=== PATIENT | female | born 1980 | race African-American/Black ===

== ENCOUNTER 2018-06-08 14:09 | Outpatient (CLI) | payer OTHER ==
[~2018-06-08 14:09] MED LIST: Iopamidol 300 61% 50 ML VIAL FS ONE
--- NOTE | 2018-06-08 19:17 | RAD ---
HYSTEROSALPINGOGRAM: 06/08/18 HISTORY: 37-year-old female with infertility. TECHNIQUE/FINDINGS: Signed informed consent obtained. Procedure was performed following standard sterile technique. Lubri cated speculum was placed into the vaginal canal. Cotton tipped applicators used to swab the external cervical os with Betadine x 2. Sterile HSG catheter advanced through the external cervical os, ballo on inflated, and contrast injected. Initially, the catheter tip was in the cervical canal. The balloo n was deflated, and the catheter was advanced into the endometrial cavity of the uterus. Balloon was reinflated, and additional contrast was injected while the catheter balloon was pulled back to obstru ct the internal cervical os. Despite strong pressure with the syringe, no contrast free spillage is v isualized within the pelvic cavity. The proximal segment nondilated right fallopian tube is opacified with contrast, but distal portions are not visualized. The left fallopian tube does not opacify with contrast. The endometrial cavity is normal in shape with no filling defect defects or irregularity. IMPRESSION: Bilateral occlusion of fallopian tubes. POS: [facility]
== END 2018-06-08 14:10 | disposition home or self-care (01) ==
LOC: RAD 14:09
PROVIDERS: ATTEND Obstetrics & Gynecology Reproductive Endocrinology
DX: N97.1 Female infertility of tubal origin (principal)
CPT/HCPCS: 58340; 74740

== ENCOUNTER 2023-06-16 13:41 | Outpatient (CLI) | payer OTHER | END 2023-06-16 13:42 | disposition home or self-care (01) | LOC: BICMAMMO 13:41 | PROVIDERS: ATTEND Obstetrics & Gynecology | DX: R92.8 Other abnormal and inconclusive findings on diagnostic imaging of breast (principal); N63.14 Unspecified lump in the right breast, lower inner quadrant | CPT/HCPCS: G0279 ==

== ENCOUNTER 2025-05-09 11:00 | Outpatient (CLI) | payer OTHER | END 2025-05-09 11:01 | disposition home or self-care (01) | LOC: PET 11:00 | PROVIDERS: ATTEND Radiology Radiation Oncology | DX: C50.812 Malignant neoplasm of overlapping sites of left female breast (principal); C77.3 Secondary and unspecified malignant neoplasm of axilla and upper limb lymph nodes | CPT/HCPCS: 78815; A9552 ==

== ENCOUNTER 2025-05-19 10:22 | Inpatient (IN) | payer OTHER ==
[2025-05-19] MEDS ORDERED: Ketorolac Tromethamine 30 MG (1 mL) VIAL ONE (10:45)
[2025-05-19 12:41] LABS: #Basophils 0.04 10x3/uL (0.0-0.2); #Eosinophils Less than 0.03 10x3/uL (0.0-0.7); #Monocytes 0.54 10x3/uL (0.11-0.59); #Neutrophils 14.62 10x3/uL (1.40-6.50); %Basophils 0.3 % (0.0-1.0); %Eosinophils 0.0 % (0.0-10.0); %Lymphocytes 2.1 % (21.0-51.0); %Monocytes 3.5 % (0.0-10.0); %Neutrophils 93.6 % (42.0-75.0); Hematocrit 30.4 % (36.0-47.0); Hemoglobin 9.8 g/dL (12.0-16.0); Mean Corpuscular Hemoglobin 28.9 pg (27.0-31.0); Mean Corpuscular Volume 89.7 fL (78.0-98.0); Platelet Count 191 10x3/uL (130-400); Red Blood Cell (RBC) Count 3.39 mill/uL (4.20-5.40); White Blood Cell (WBC) Count 15.60 10x3/uL (4.8-10.8)
[2025-05-19 12:58] LABS: ALT (SGPT) 28 U/L (Less than 34); AST (SGOT) 32 U/L (11-34); Albumin 3.6 g/dL (3.1-4.5); Alkaline Phosphatase 39 U/L (40-110); Anion Gap 11 mmol/L (10-20); BUN (Urea Nitrogen) 9 mg/dL (7.0-18.7); Bilirubin, Total 0.7 mg/dL (0.3-1.2); Calc. Creatinine Clearance 0 mL/min (70-130); Calcium 8.9 mg/dL (7.8-10.44); Carbon Dioxide 22 mmol/L (22-29); Chloride 108 mmol/L (98-107); Globulin 2.8 g/dL (2.4-3.5); Glucose 83 mg/dL (70-105); Lipase 6 U/L (8-78); Potassium 3.6 mmol/L (3.5-5.1); Sodium 137 mmol/L (136-145)
[2025-05-19] MEDS ORDERED: Calcium Carbonate 500 MG ChewTAB PO PRN (13:52)
[2025-05-19] MEDS ORDERED: Ondansetron PF 4 MG/2 ML Vial IVP PRN (13:52)
[2025-05-19] MEDS ORDERED: Acetaminophen 500 MG TAB ONE (14:14)
[2025-05-19 14:57] VITALS: BMI 27.6
[2025-05-19] MEDS: D5 1/2 NS w/20 mEq KCL 1,000 ML IV SCH (15:36)
[2025-05-19] MEDS: Acetaminophen 325 MG TAB PO PRN ×2 (18:44→23:04)
[2025-05-19] MEDS: Famotidine 20 MG TAB PO SCH (21:21)
[2025-05-19] MEDS: Senokot S 8.6-50 MG TAB PO SCH (21:21)
[2025-05-19] MEDS: Famotidine/PF 20 mg/2ml Vial SLOW IVP SCH (21:23)
[2025-05-20 06:24] LABS: #Basophils Less than 0.03 10x3/uL (0.0-0.2); #Eosinophils Less than 0.03 10x3/uL (0.0-0.7); #Monocytes 0.62 10x3/uL (0.11-0.59); #Neutrophils 7.29 10x3/uL (1.40-6.50); %Basophils 0.2 % (0.0-1.0); %Eosinophils 0.0 % (0.0-10.0); %Lymphocytes 3.3 % (21.0-51.0); %Monocytes 7.5 % (0.0-10.0); %Neutrophils 88.4 % (42.0-75.0); Hematocrit 29.8 % (36.0-47.0); Hemoglobin 9.6 g/dL (12.0-16.0); Mean Corpuscular Hemoglobin 28.7 pg (27.0-31.0); Mean Corpuscular Volume 89.0 fL (78.0-98.0); Platelet Count 147 10x3/uL (130-400); Red Blood Cell (RBC) Count 3.35 mill/uL (4.20-5.40); White Blood Cell (WBC) Count 8.25 10x3/uL (4.8-10.8)
[2025-05-20 06:49] LABS: ALT (SGPT) 50 U/L (Less than 34); AST (SGOT) 62 U/L (11-34); Albumin 2.9 g/dL (3.1-4.5); Alkaline Phosphatase 40 U/L (40-110); Anion Gap 6 mmol/L (10-20); BUN (Urea Nitrogen) 10 mg/dL (7.0-18.7); Bilirubin, Total 1.0 mg/dL (0.3-1.2); Calc. Creatinine Clearance 91 mL/min (70-130); Calcium 8.1 mg/dL (7.8-10.44); Carbon Dioxide 23 mmol/L (22-29); Chloride 106 mmol/L (98-107); Globulin 2.7 g/dL (2.4-3.5); Glucose 112 mg/dL (70-105); Lipase 6 U/L (8-78); Magnesium 1.3 mg/dL (1.6-2.6); Potassium 3.4 mmol/L (3.5-5.1); Sodium 132 mmol/L (136-145)
[2025-05-20 07:00] LABS: CRP, High Sensitivity at Bryan 20.43 mg/dL (< or = 0.5)
[2025-05-20] MEDS ORDERED: Electrolyte Replacement Protocol 1 EACH FS SCH (08:15)
[2025-05-20] MEDS ORDERED: Magnesium Sulfate 4 GM in Sodium Chloride 0.9% 250 ML 250 ML IVPB SCH (08:15)
[2025-05-20] MEDS: Potassium Phosphate 30 MMOL in Sodium Chloride 0.9% 250 ML 250 ML IVPB SCH (09:15)
[2025-05-20] MEDS: Magnesium Sulfate In Water 4 GM in Premix 1 BAG IVPB SCH (09:16)
[2025-05-20] MEDS: D5 0.9% NS w/ 20 mEq KCl 1,000 ML IV SCH (09:34)
[2025-05-20] MEDS: VANCOMYCIN 2 GRAM/400 ML Premix BAG IVPB SCH (19:43)
[2025-05-21] MEDS: Vancomycin 1 GM in Premix 1 BAG IVPB SCH ×2 (05:34→20:09)
[2025-05-21 06:17] LABS: Hematocrit 31.3 % (36.0-47.0); Hemoglobin 10.0 g/dL (12.0-16.0); Mean Corpuscular Hemoglobin 28.6 pg (27.0-31.0); Mean Corpuscular Volume 89.4 fL (78.0-98.0); Platelet Count 128 10x3/uL (130-400); Red Blood Cell (RBC) Count 3.50 mill/uL (4.20-5.40); White Blood Cell (WBC) Count 4.09 10x3/uL (4.8-10.8)
[2025-05-21 06:32] LABS: Vancomycin, Random 28.9 ug/mL (See Comment)
[2025-05-21 06:43] LABS: ALT (SGPT) 46 U/L (Less than 34); AST (SGOT) 43 U/L (11-34); Albumin 3.0 g/dL (3.1-4.5); Alkaline Phosphatase 69 U/L (40-110); Anion Gap 9 mmol/L (10-20); BUN (Urea Nitrogen) 5 mg/dL (7.0-18.7); Bilirubin, Total 0.8 mg/dL (0.3-1.2); Calc. Creatinine Clearance 107 mL/min (70-130); Calcium 8.2 mg/dL (7.8-10.44); Carbon Dioxide 19 mmol/L (22-29); Cardiac Risk 4.4 (Less than 4.5); Chloride 111 mmol/L (98-107); Cholesterol 145 mg/dl (< 200 Desired); Globulin 3.1 g/dL (2.4-3.5); Glucose 109 mg/dL (70-105); HDL Cholesterol 33 mg/dL (>60 Neg Risk); LDL Cholesterol, Calculated 74 mg/dL; Magnesium 2.1 mg/dL (1.6-2.6); Potassium 3.9 mmol/L (3.5-5.1); Sodium 135 mmol/L (136-145); Triglycerides 188 mg/dL (Less than 150)
[2025-05-21 07:29] LABS: Burr Cells MODERATE= 6-15 cells HPF (0-1); Platelet Adequacy Comment Platelets Decreased; Poikilocytosis SLIGHT = 6-15 cells HPF (0-5); Polychromasia SLIGHT = 2-3 cells HPF (0-2); Schistocytes SLIGHT = 2-5 cells HPF (0-1); Smudge Cells 3.8 %
[2025-05-21] MEDS: PHOS-NAK 1 PKT PACK PO SCH (09:53)
[2025-05-21] MEDS: guaiFENesin/Codeine 200 mg/20 mg 10 ml Cup PO SCH (18:30)
[2025-05-21] MEDS: Enoxaparin 40 MG (0.4 mL) SYRINGE SC SCH (20:10)
[2025-05-21] MEDS: Ketorolac Tromethamine 30 MG (1 mL) VIAL IVP PRN (20:11)
[2025-05-22 07:32] LABS: #Basophils 0.03 10x3/uL (0.0-0.2); #Eosinophils 0.10 10x3/uL (0.0-0.7); #Monocytes 0.63 10x3/uL (0.11-0.59); #Neutrophils 3.04 10x3/uL (1.40-6.50); %Basophils 0.6 % (0.0-1.0); %Eosinophils 2.1 % (0.0-10.0); %Lymphocytes 21.2 % (21.0-51.0); %Monocytes 13.0 % (0.0-10.0); %Neutrophils 62.7 % (42.0-75.0); Hematocrit 29.5 % (36.0-47.0); Hemoglobin 9.7 g/dL (12.0-16.0); Mean Corpuscular Hemoglobin 29.0 pg (27.0-31.0); Mean Corpuscular Volume 88.3 fL (78.0-98.0); Platelet Count 144 10x3/uL (130-400); Red Blood Cell (RBC) Count 3.34 mill/uL (4.20-5.40); White Blood Cell (WBC) Count 4.85 10x3/uL (4.8-10.8)
[2025-05-22 07:46] LABS: ALT (SGPT) 40 U/L (Less than 34); AST (SGOT) 37 U/L (11-34); Albumin 3.0 g/dL (3.1-4.5); Alkaline Phosphatase 101 U/L (40-110); Anion Gap 13 mmol/L (10-20); BUN (Urea Nitrogen) 6 mg/dL (7.0-18.7); Bilirubin, Total 0.4 mg/dL (0.3-1.2); Calc. Creatinine Clearance 133 mL/min (70-130); Calcium 8.9 mg/dL (7.8-10.44); Carbon Dioxide 18 mmol/L (22-29); Chloride 110 mmol/L (98-107); Globulin 3.2 g/dL (2.4-3.5); Glucose 78 mg/dL (70-105); Potassium 4.0 mmol/L (3.5-5.1); Sodium 137 mmol/L (136-145)
[2025-05-22] MEDS: guaiFENesin/Codeine 200 mg/20 mg 10 ml Cup PO PRN (15:24)
[2025-05-23 06:08] LABS: ALT (SGPT) 78 U/L (Less than 34); AST (SGOT) 87 U/L (11-34); Albumin 2.8 g/dL (3.1-4.5); Alkaline Phosphatase 92 U/L (40-110); Anion Gap 11 mmol/L (10-20); BUN (Urea Nitrogen) 5 mg/dL (7.0-18.7); Bilirubin, Total 0.3 mg/dL (0.3-1.2); Calc. Creatinine Clearance 131 mL/min (70-130); Calcium 8.6 mg/dL (7.8-10.44); Carbon Dioxide 25 mmol/L (22-29); Chloride 107 mmol/L (98-107); Globulin 3.0 g/dL (2.4-3.5); Glucose 98 mg/dL (70-105); Potassium 4.0 mmol/L (3.5-5.1); Sodium 139 mmol/L (136-145)
[2025-05-23 07:05] LABS: Hematocrit 27.3 % (36.0-47.0); Hemoglobin 8.8 g/dL (12.0-16.0); Mean Corpuscular Hemoglobin 28.3 pg (27.0-31.0); Mean Corpuscular Volume 87.8 fL (78.0-98.0); Platelet Count 172 10x3/uL (130-400); Red Blood Cell (RBC) Count 3.11 mill/uL (4.20-5.40); White Blood Cell (WBC) Count 4.94 10x3/uL (4.8-10.8)
[2025-05-23 08:45] LABS: Anisocytosis MARKED = >30 cells HPF (0-5); Macrocytosis MODERATE=16-30 cells HPF (0-5); Platelet Adequacy Comment Platelets Normal; Polychromasia SLIGHT = 2-3 cells HPF (0-2); Schistocytes SLIGHT = 2-5 cells HPF (0-1); Spherocytes SLIGHT = 1-5 cells HPF (None Seen)
[2025-05-24 07:21] LABS: Hematocrit 28.0 % (36.0-47.0); Hemoglobin 8.9 g/dL (12.0-16.0); Mean Corpuscular Hemoglobin 27.9 pg (27.0-31.0); Mean Corpuscular Volume 87.8 fL (78.0-98.0); Platelet Count 221 10x3/uL (130-400); Red Blood Cell (RBC) Count 3.19 mill/uL (4.20-5.40); White Blood Cell (WBC) Count 5.04 10x3/uL (4.8-10.8)
[2025-05-24 07:28] LABS: ALT (SGPT) 54 U/L (Less than 34); AST (SGOT) 41 U/L (11-34); Albumin 2.8 g/dL (3.1-4.5); Alkaline Phosphatase 79 U/L (40-110); Anion Gap 10 mmol/L (10-20); BUN (Urea Nitrogen) 5 mg/dL (7.0-18.7); Bilirubin, Total 0.2 mg/dL (0.3-1.2); Calc. Creatinine Clearance 139 mL/min (70-130); Calcium 8.7 mg/dL (7.8-10.44); Carbon Dioxide 24 mmol/L (22-29); Chloride 109 mmol/L (98-107); Globulin 3.1 g/dL (2.4-3.5); Glucose 94 mg/dL (70-105); Potassium 3.9 mmol/L (3.5-5.1); Sodium 139 mmol/L (136-145)
[2025-05-24 07:50] LABS: Burr Cells SLIGHT = 2-5 cells HPF (0-1); Plasma Cells 1 % (0-0); Platelet Adequacy Comment Platelets Normal; Smudge Cells 3.0 %
[2025-05-24 16:01] VITALS: BMI 27.6
[2025-05-24 16:37] VITALS: BP 116/72; TEMP 99
== END 2025-05-24 17:28 | disposition home or self-care (01) | DRG 871 ==
LOC: ERS 10:22 → ERHOLD 12:21 → T4-B 14:44
PROVIDERS: ADMIT Internal Medicine; ATTEND Family Medicine
PROC: 0JPV3WZ Removal of Totally Implantable Vascular Access Device from Upper Extremity Subcutaneous Tissue and Fascia, Percutaneous Approach (ICD-10-PCS; principal; 2025-05-22)
PROC: 3E03329 Introduction of Other Anti-infective into Peripheral Vein, Percutaneous Approach (ICD-10-PCS; 2025-05-22)
DX: A41.9 Sepsis, unspecified organism (principal); K85.90 Acute pancreatitis without necrosis or infection, unspecified; E87.1 Hypo-osmolality and hyponatremia; E86.0 Dehydration; E87.6 Hypokalemia; D64.9 Anemia, unspecified; K59.00 Constipation, unspecified; Z91.041 Radiographic dye allergy status; Z98.891 History of uterine scar from previous surgery
CPT/HCPCS: 36415; 76705; 80053; 80061; 80202; 83605; 83690; 83735; 84100; 85025; 86141; 87040; 87077; 87149; 87186; 93306; 96361; 96365; 96375; J1650; J1885; J2543; J3373; J3375; J3475; J3480; J7050; Q0162